=== PATIENT | female | born 1985 | race Caucasian/White ===

== ENCOUNTER 2016-09-08 22:43 | Emergency (ER) | payer SELFPAY ==
[~2016-09-08 22:43] MED LIST: ATARAX50 MG PO; BACTRIM DS TABL1 TAB PO; FLEXERIL10 MG PO; IBUPROFEN600 MG PO; MOTRIN600 MG PO; NORCO 5/325 TAB1 TAB PO; PRENATAL VITAMI1 TAB PO; TUMS500 MG; TYLENOL #31 TA2 PO
[2016-09-08] MEDS ORDERED: AMOXICILLIN875 M1 PO (23:49)
[2016-09-08] MEDS ORDERED: NORCO 5-325 TA1 EACH PO (23:49)
[2016-12-05] MEDS ORDERED: NO HOME MEDICATION (22:52)
[2016-12-05] MEDS ORDERED: NORCO 5-325 TA1 EACH PO (23:56)
[2016-12-05] MEDS ORDERED: AUGMENTIN 875-1 EAC2 PO (23:56)
[2016-12-11] MEDS ORDERED: IBUPROFEN800 M1 PO (10:43)
[2016-12-11] MEDS ORDERED: NORCO 5/3251 TAB PO (10:43)
[2016-12-14] MEDS ORDERED: CYCLOBENZAPRINE5 M1 PO (14:34)
[2016-12-14] MEDS ORDERED: NORCO 5-325 TA1 EACH PO (14:34)
[2017-01-21] MEDS ORDERED: PERCOCET 5-3251 EACH PO (03:23)
[2017-03-11] MEDS ORDERED: NORCO 5-325 TA1 EACH PO (18:17)
== END 2016-09-09 00:02 ==
LOC: EDMED 22:43
DX: M75.02 Adhesive capsulitis of left shoulder (principal); K08.89 Other specified disorders of teeth and supporting structures; F17.200 Nicotine dependence, unspecified, uncomplicated

== ENCOUNTER 2016-10-14 00:18 | Emergency (ER) | payer SELFPAY ==
[~2016-10-14 00:18] MED LIST changes: +AMOXICILLIN875 M1 PO; +NORCO 5-325 TA1 EACH PO
[2016-10-14] MEDS ORDERED: PENICILLIN V P500 M1 PO (00:47)
[2016-10-14] MEDS ORDERED: PERCOCET 5-3251 EACH PO (00:57)
[2016-12-05] MEDS ORDERED: NO HOME MEDICATION (22:52)
[2016-12-05] MEDS ORDERED: NORCO 5-325 TA1 EACH PO (23:56)
[2016-12-05] MEDS ORDERED: AUGMENTIN 875-1 EAC2 PO (23:56)
[2016-12-11] MEDS ORDERED: NORCO 5/3251 TAB PO (10:43)
[2016-12-11] MEDS ORDERED: IBUPROFEN800 M1 PO (10:43)
[2016-12-14] MEDS ORDERED: NORCO 5-325 TA1 EACH PO (14:34)
[2016-12-14] MEDS ORDERED: CYCLOBENZAPRINE5 M1 PO (14:34)
[2017-01-21] MEDS ORDERED: PERCOCET 5-3251 EACH PO (03:23)
[2017-03-11] MEDS ORDERED: NORCO 5-325 TA1 EACH PO (18:17)
== END 2016-10-14 01:00 ==
LOC: EDMED 00:18
DX: K02.9 Dental caries, unspecified (principal); K05.10 Chronic gingivitis, plaque induced; F17.200 Nicotine dependence, unspecified, uncomplicated; Z98.890 Other specified postprocedural states